=== PATIENT | male | born 1990 ===

== ENCOUNTER 2016-10-24 00:17 | Emergency (ER) | payer OTHER ==
[2016-10-24 00:37] VITALS: BMI 29.6
[2016-10-24 00:39] VITALS: BP 129/73; PULSE 74; RESP 16; TEMP 98.2; O2SAT 97
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
== END 2016-10-24 01:46 | disposition home or self-care (01) ==
LOC: H.ER 00:17
DX: S60.811A Abrasion of right wrist, initial encounter (principal); Y04.0XXA Assault by unarmed brawl or fight, initial encounter; Y92.238 Other place in hospital as the place of occurrence of the external cause

== ENCOUNTER 2017-07-13 04:44 | Emergency (ER) | payer OTHER ==
[2017-07-13 04:45] VITALS: BMI 29.6
[2017-07-13 05:02] VITALS: BP 124/78; PULSE 80; RESP 17; TEMP 98; O2SAT 100
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
== END 2017-07-13 05:42 | disposition home or self-care (01) ==
LOC: H.ER 04:44
DX: S39.012A Strain of muscle, fascia and tendon of lower back, initial encounter (principal); Y04.0XXA Assault by unarmed brawl or fight, initial encounter

== ENCOUNTER 2018-01-04 07:49 | Emergency (ER) | payer OTHER ==
[2018-01-04 07:52] VITALS: BMI 30.5
[2018-01-04 07:53] VITALS: BP 135/82; PULSE 80; RESP 16; TEMP 98.1; O2SAT 100
[2018-01-04] MEDS ORDERED: Naproxen 500 MG TAB PO STA (08:03)
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
[2018-01-04] MEDS ORDERED: Naproxen 500 MG TAB PO ONE (08:10)
--- NOTE | 2018-01-04 08:35 | RAD ---
Date of service: 01/04/2018 PROCEDURE: Radiographs of the Left Shoulder HISTORY: injury COMPARISON: No prior. FINDINGS: BONES: No acute fracture or destructive bony lesion identified. JOINTS: Normal. Glenohumeral and acromioclavicular joints preserved. No osteoarthritis. SOFT TISSUES: Normal. OTHER FINDINGS: None. IMPRESSION: Normal radiographs of the left shoulder.
== END 2018-01-04 08:56 | disposition home or self-care (01) ==
LOC: H.ER 07:49
DX: S49.92XA Unspecified injury of left shoulder and upper arm, initial encounter (principal); W19.XXXA Unspecified fall, initial encounter; Y99.0 Civilian activity done for income or pay